=== PATIENT | male | born 1960 | race Caucasian/White ===

== ENCOUNTER → 2021-07-15 | Emergency (ER) | payer SELFPAY ==
[~2021-07-15] VITALS: Ht 177.8 cm; Wt 113.4 kg
[~2021-07-15] MED LIST: ALUM & MAG HYDROX-SIMETH LIQ(MAALOX) 30 ML PO ONE; FAMOTIDINE (10MG/ML) 2ML VL IV ONE; LIDOCAINE VISCOUS 2% 15ML UD PO ONE; LORazepam 2MG/ML-1ML VIAL IV ONE; METOCLOPRAMIDE HCL 5MG/ml INJ 2ml VIAL IV ONE; ONDANSETRON HCL 4 MG/2 ML VIAL IV ONE; ONDANSETRON HCL 4 MG/2 ML VIAL ONE; PANTOPRAZOLE 40 MG TAB PO ONE; SODIUM CHLORIDE 0.9% 1,000 ML IV ONE
[2021-07-15 12:05] LABS: Eosinophils # (auto) 0 10 ^3/uL (0-0.8); Lymphocytes # (auto) 1.7 10 ^3/uL (0.4-5.4); Monocytes # (auto) 0.7 10 ^3/uL (0-1.3); Nucleated Red Blood Cells % 0.1 %; White Blood Cell 6.8 10^3/uL (4.4-10.8)
[2021-07-15 12:06] LABS: Basophils # (auto) 0 10 ^3/uL (0-0.2); Basophils % (auto) 0.6 % (0.0-2.0); Eosinophils % (auto) 0.1 % (0.0-7.0); Hematocrit 45.6 % (41.0-53.0); Hemoglobin 16.4 g/dL (13.5-17.5); Mean Corpuscular Hemoglobin 35.2 pg (28.0-32.0); Mean Corpuscular Hgb Conc. 35.8 g/dL (32.0-36.0); Mean Corpuscular Volume 98.3 fL (80.0-100.0); Neutrophils # (auto) 4.3 10 ^3/uL (1.6-8.6); Neutrophils % (auto) 63.3 % (37.0-80.0); Red Blood Cells 4.64 10^6/uL (4.5-5.90); Red Cell Distribution Width 13.6 % (11.8-14.3)
[2021-07-15 12:08] LABS: Lactic Acid w/Reflex 2.6 mmol/L (0.4-2.0)
[2021-07-15 12:21] LABS: Albumin 4.5 g/dL (3.4-5.0); Anion Gap 18 (5-15); Blood Urea Nitrogen 5 mg/dL (7-18); Calcium 9.3 mg/dL (8.5-10.1); Carbon Dioxide 19 mmol/L (21-32); Chloride 98 mmol/L (98-107); Glucose 110 mg/dL (74-106); Potassium 3.3 mmol/L (3.5-5.1); Salicylate 2.5 mg/dL (2.8-20.0); Sodium 135 mmol/L (136-145)
[2021-07-15 12:24] LABS: Alanine Aminotransferase 91 U/L (16-61); Aspartate Aminotransferase 93 U/L (15-37); BUN/Creatinine Ratio 3.5; Blood Alcohol < 3.0 mg/dL (0-5); GFR African American 66 mL/min; GFR Non-African American 54 mL/min
[2021-07-15 12:26] LABS: INR 1.05 (0.9-1.15); Partial Thromboplastin Time 29.9 sec (23.6-33.0)
[2021-07-15 12:37] LABS: Alkaline Phosphatase 61 U/L (45-117); Bilirubin, Total 1.2 mg/dL (0.2-1.0); Creatine Kinase IFCC 1105 U/L (39-308); Total Protein 7.3 g/dL (6.4-8.2)
[2021-07-15 12:46] LABS: Acetaminophen < 2.0 ug/mL (10-30)
[2021-07-15 16:58] LABS: Alanine Aminotransferase 76 U/L (16-61); Albumin 3.8 g/dL (3.4-5.0); Anion Gap 13 (5-15); Aspartate Aminotransferase 79 U/L (15-37); BUN/Creatinine Ratio 2.4; Blood Alcohol < 3.0 mg/dL (0-5); Blood Urea Nitrogen 4 mg/dL (7-18); Calcium 8.3 mg/dL (8.5-10.1); Carbon Dioxide 21 mmol/L (21-32); Chloride 104 mmol/L (98-107); GFR African American 53 mL/min; GFR Non-African American 44 mL/min; Glucose 126 mg/dL (74-106); Potassium 3.3 mmol/L (3.5-5.1); Sodium 138 mmol/L (136-145)
[2021-07-15 17:00] VITALS: BP 123/79
[2021-07-15 17:01] LABS: Alkaline Phosphatase 59 U/L (45-117); Bilirubin, Total 0.9 mg/dL (0.2-1.0); Total Protein 6.6 g/dL (6.4-8.2)
== END | disposition home or self-care (01) ==
LOC: EDBD 10:48 → ER 10:48
DX: R11.2 Nausea with vomiting, unspecified (principal); R41.0 Disorientation, unspecified; T51.2X1A Toxic effect of 2-Propanol, accidental (unintentional), initial encounter; F17.210 Nicotine dependence, cigarettes, uncomplicated; Y92.89 Other specified places as the place of occurrence of the external cause
CPT/HCPCS: 36415; 36600; 80053; 80320; 80329; 82010; 82140; 82550; 82805; 83605; 83690; 83930; 85025; 85610; 85730; 93005; 96361; 96374; 96375; 99285; J2060; J2765; J3490; J7030; J2405

== ENCOUNTER 2023-03-08 20:17 | Emergency (ER) | payer OTHER, SELFPAY ==
[~2023-03-08] VITALS: Ht 172.7 cm; Wt 80.0 kg
[2023-03-08 21:00] VITALS: RESP 16; O2SAT 98
[2023-03-08] MEDS ORDERED: LORazepam 2MG/ML-1ML VIAL IV ONE (21:30)
[2023-03-08] MEDS ORDERED: SODIUM CHLORIDE 0.9% 1,000 ML IVB ONE (21:30)
[2023-03-08] MEDS ORDERED: SODIUM CHLORIDE 0.9% 1,000 ML IV ONE (21:30)
[2023-03-08 22:13] LABS: Magnesium 2.1 mg/dL (1.6-2.6)
[2023-03-08 22:16] LABS: Basophils # (auto) 0.1 10 ^3/uL (0-0.2); Eosinophils # (auto) 0 10 ^3/uL (0-0.8); Hemoglobin 18.9 g/dL (13.5-17.5); Monocytes # (auto) 0.8 10 ^3/uL (0-1.3); White Blood Cell 9.2 10^3/uL (4.4-10.8)
[2023-03-08 22:18] LABS: Basophils % (auto) 0.8 % (0.0-2.0); Eosinophils % (auto) 0.4 % (0.0-7.0); Lymphocytes # (auto) 3.9 10 ^3/uL (0.4-5.4); Mean Corpuscular Hemoglobin 34.3 pg (28.0-32.0); Mean Corpuscular Hgb Conc. 34.3 g/dL (32.0-36.0); Mean Corpuscular Volume 99.9 fL (80.0-100.0); Monocytes % (auto) 8.5 % (0.0-12.0); Neutrophils # (auto) 4.5 10 ^3/uL (1.6-8.6); Neutrophils % (auto) 48.3 % (37.0-80.0); Nucleated Red Blood Cells % 0.5 %; Red Blood Cells 5.51 10^6/uL (4.5-5.90); Red Cell Distribution Width 14.1 % (11.8-14.3)
[2023-03-08 22:30] LABS: INR 1.02 (0.9-1.15); Partial Thromboplastin Time 29.9 SEC (24.5-34.5); Prothrombin Time 10.7 sec (9.3-11.8)
[2023-03-09] MEDS ORDERED: diphenhdrAMINE HCL 50 MG/1 ML VL IV ONE
[2023-03-09 00:46] LABS: Urine Epithelial Cast None Seen /hpf (<5)
[2023-03-09 00:58] LABS: Urine Bacteria NONE SEEN /hpf (None Seen); Urine Blood Negative /uL (Negative); Urine Clarity Clear (Clear); Urine Color Yellow (Yellow); Urine Mucus FEW (None Seen); Urine Protein, UAD 1+ (Negative); Urine Specific Gravity 1.021 (1.001-1.035); Urine Urobilinogen Normal (Negative); Urine WBC 2 /hpf (0 - 3); Urine pH 5.5 (5.0-8.0)
[2023-03-09 01:35] LABS: Amphetamine Screen, Urine Neg (NEGATIVE); Barbiturate Scree,Urine Neg (NEGATIVE); Benzodiazephine Screen, Urine Neg (NEGATIVE); Cannabinoid Screen, Urine Pos (NEGATIVE); Cocaine Screen, Urine Neg (NEGATIVE); Opiate Scree,Urine Neg (NEGATIVE); Phencyclidine Screen, Urine Neg (NEGATIVE)
[2023-03-09] MEDS ORDERED: LORazepam 2MG/ML-1ML VIAL IV ONE (02:45)
[2023-03-09] MEDS ORDERED: NICOTINE 21MG/24 HR TOPICAL PATCH TD ONE (04:45)
[2023-03-09] MEDS ORDERED: ONDANSETRON HCL 4 MG/2 ML VIAL IV ONE (05:30)
[2023-03-09 06:27] VITALS: BP 105/66; PULSE 64; RESP 18; O2SAT 92
== END 2023-03-09 06:59 | disposition home or self-care (01) ==
LOC: ER 20:17 → EDBD 20:17 → ER 03-09 06:59
DX: F10.129 Alcohol abuse with intoxication, unspecified (principal); R41.82 Altered mental status, unspecified; F17.210 Nicotine dependence, cigarettes, uncomplicated; Z79.899 Other long term (current) drug therapy; Z79.01 Long term (current) use of anticoagulants; Y90.8 Blood alcohol level of 240 mg/100 ml or more
CPT/HCPCS: 36415; 70450; 71045; 80307; 80320; 81001; 83690; 83735; 84484; 85025; 85379; 85610; 85730; 96361; 96374; 96375; 96376; 99285; J1200; J2060; J2405; J7030